=== PATIENT | female | born 1965 | race American Indian/Alaskan Native ===

== ENCOUNTER 2017-02-07 04:17 | Emergency (ER) | payer OTHER ==
[2017-02-07 04:26] VITALS: TEMP 98.8
--- NOTE | 2017-02-07 04:33 | ED PDOC ---
Arrival/HPI - General Chief Complaint: Abdominal Pain Time Seen by Provider: 02/07/17 04:28 Historian: Patient - History of Present Illness Narrative History of Present Illness (Text): 02/07/17 04:32 Adriane Harrell is a 51 year old female, whose past medical history includes hypertension, who presents to the emergency department complaining of right sided abdominal pain tonight. Patient reports associated constipation and notes she has taken laxatives with no relief. Patient denies any history of fever, chills, abdominal pain, nausea, vomiting, diarrhea, urinary symptoms, back pain, headache, or any other complaints. Symptom Onset: Gradual Symptom Course: Unchanged Activities at Onset: Rest, Light Context: Home Past Medical History - Provider Review Nursing Documentation Reviewed: Yes - Cardiac Hx Hypertension: Yes - Psychiatric Hx Substance Use: No Family/Social History - Physician Review Nursing Documentation Reviewed: Yes Family/Social History: No Known Family HX Smoking Status: no Hx Alcohol Use: No Hx Substance Use: No Allergies/Home Meds Allergies/Adverse Reactions: Allergies No Known Allergies Allergy (Verified 02/07/17 04:26) Home Medications: Home Meds Medication Instructions Recorded Confirmed Unobtainable 02/07/17 02/07/17 Review of Systems - Physician Review All systems were reviewed & negative as marked: Yes - Review of Systems Constitutional: Normal. absent: Fevers Eyes: Normal ENT: Normal Respiratory: Normal. absent: SOB, Cough Cardiovascular: Normal. absent: Chest Pain Gastrointestinal: Abdominal Pain, Constipation. absent: Diarrhea, Nausea, Vomiting Genitourinary Female: Normal. absent: Dysuria, Frequency, Hematuria, Urine Output Changes Musculoskeletal: Normal. absent: Back Pain, Neck Pain Skin: Normal Neurological: Normal. absent: Headache, Dizziness Endocrine: Normal Hemo/Lymphatic: Normal Psychiatric: Normal Physical Exam Vital Signs Reviewed: Yes Vital Signs Temp Pulse Resp BP Pulse Ox 02/07/17 06:22 76 16 140/85 100 02/07/17 04:19 98.8 F 78 18 136/78 99 Temperature: Afebrile Blood Pressure: Normal Pulse: Regular Respiratory Rate: Normal Appearance: Positive for: Well-Appearing, Non-Toxic, Comfortable Pain Distress: None Mental Status: Positive for: Alert and Oriented X 3 - Systems Exam Head: Present: Atraumatic, Normocephalic Pupils: Present: PERRL Extroacular Muscles: Present: EOMI Conjunctiva: Present: Normal Mouth: Present: Moist Mucous Membranes Neck: Present: Normal Range of Motion Respiratory/Chest: Present: Clear to Auscultation, Good Air Exchange. No: Respiratory Distress, Accessory Muscle Use Cardiovascular: Present: Regular Rate and Rhythm, Normal S1, S2. No: Murmurs Abdomen: Present: Tenderness (right mid/lower abdomen), Normal Bowel Sounds. No : Distention, Peritoneal Signs, Rebound, Guarding, Hernias Back: Present: Normal Inspection Upper Extremity: Present: Normal Inspection. No: Cyanosis, Edema Lower Extremity: Present: Normal Inspection. No: Edema Neurological: Present: GCS=15, CN II-XII Intact, Speech Normal Skin: Present: Warm, Dry, Normal Color. No: Rashes Psychiatric: Present: Alert, Oriented x 3, Normal Insight, Normal Concentration Medical Decision Making ED Course and Treatment: 02/07/17 04:33 Impression: 51 year old female complaining of right-sided abdominal pain and constipation. Plan: -- CT Abdomen and Pelvis with IV contrast -- Labs, lipase -- Urinalysis -- IV fluids -- Reassess and disposition Progress Notes: - Lab Interpretations Lab Results: 02/07/17 05:30 Lab Results 02/07/17 05:50: Urine Color Yellow, Urine Appearance Clear, Urine pH 6.0, Ur Specific [place] 1.020, Urine Protein Trace H, Urine Glucose (UA) Negative, Urine Ketones Negative, Urine Blood Negative, Urine Nitrate Negative, Urine Bilirubin Negative, Urine Urobilinogen 0.2, Ur Leukocyte Esterase Negative, Urine RBC 0 - 2, Urine WBC 0 - 2, Ur Epithelial Cells 0 - 2, Urine HCG, Qual Negative 02/07/17 05:30: WBC 5.4, RBC 4.23, Hgb 13.5, Hct 39.5, MCV 93.4, MCH 31.9, MCHC 34.2, RDW 13.3, Plt Count 197, MPV 9.0 I have reviewed the lab results: Yes - RAD Interpretation Radiology Orders: 02/07/17 04:37 ABD & PELVIS IV CONTRAST ONLY [CT] Stat - Medication Orders Current Medication Orders: Discontinued Medications Sodium Chloride (Sodium Chloride 0.9%) 1,000 mls @ 999 mls/hr IV .Q1H1M STA Stop: 02/07/17 05:37 Last Admin: 02/07/17 06:00 Dose: 999 mls/hr - Transfer of Care Patient signed out to Dr:: Lexa Pending Radiology Studies:: CT Abd/pelvis/reassess/final disposition - Scribe Statement The provider has reviewed the documentation as recorded by the Abelardoiblino Najera Provider Attestation: All medical record entries made by the Scribe were at my direction and personally dictated by me. I have reviewed the chart and agree that the record accurately reflects my personal performance of the history, physical exam, medical decision making, and the department course for this patient. I have also personally directed, reviewed, and agree with the discharge instructions and disposition. Disposition/Present on Arrival - Present on Arrival Any Indicators Present on Arrival: No History of DVT/PE: No History of Uncontrolled Diabetes: No Urinary Catheter: No History of Decub. Ulcer: No History Surgical Site Infection Following: None - Disposition Have Diagnosis and Disposition been Completed?: No Diagnosis: Abdominal pain Disposition Time: 07:00 Patient Problems: Current Active Problems Problem Status Onset Abdominal pain Acute Condition: STABLE
[2017-02-07] MEDS ORDERED: Sodium Chloride 0.9% 1,000 ML IV STA (04:37)
[2017-02-07 05:42] LABS: HEMATOCRIT 39.5 % (36.0-48.0); MEAN CELL VOLUME 93.4 fL (80.0-105.0); MEAN CORPUSCULAR HEMOGLOBIN 31.9 pg (25.0-35.0); MEAN CORPUSCULAR HGB CONC 34.2 g/dl (31.0-37.0); RED CELL DISTRIBUTION WIDTH 13.3 % (11.5-14.5); WHITE BLOOD COUNT 5.4 10^3/ul (4.5-11.0)
[2017-02-07 06:05] LABS: URINE BILIRUBIN NEGATIVE (NEGATIVE); URINE BLOOD NEGATIVE (NEGATIVE); URINE GLUCOSE (UA) NEGATIVE (NEGATIVE); URINE KETONE NEGATIVE (NEGATIVE); URINE LEUKOCYTE ESTERASE NEGATIVE Leu/uL (NEGATIVE); URINE PROTEIN TRACE mg/dL (<30 mg/dL); URINE UROBILINOGEN 0.2 E.U./dL (<1 E.U./dL)
[2017-02-07 06:20] LABS: URINE APPEARANCE CLEAR (CLEAR); URINE COLOR YELLOW (YELLOW)
[2017-02-07 06:30] LABS: URINE EPITHELIAL CELLS 0 - 2 /hpf (0-5); URINE RBC 0 - 2 /hpf (0-2); URINE WBC 0 - 2 /hpf (0-6)
[2017-02-07 07:04] LABS: ALB/GLOB RATIO 1.5 (1.1-1.8); ALKALINE PHOSPHATASE 63 U/L (38-133); ALT/SGPT 48 U/L (7-56); AST/SGOT 35 U/L (15-39); BILIRUBIN,TOTAL 0.5 mg/dL (0.2-1.3); BLOOD UREA NITROGEN 21 mg/dL (7-21); CALCIUM 8.9 mg/dL (8.4-10.5); CARBON DIOXIDE 24 mmol/L (21-33); CHLORIDE 103 mmol/L (95-110); GFR AFRICAN-AMERICAN > 60; GLUCOSE,RANDOM 93 mg/dL (70-110); LIPASE 86 U/L (23-300); POTASSIUM 3.1 mmol/L (3.6-5.0); SODIUM 139 mmol/L (132-148); TOTAL PROTEIN 7.4 g/dL (5.8-8.3)
[2017-02-07] MEDS ORDERED: Potassium Chloride 20 mEq ER Tab PO STA (07:12)
[2017-02-07] MEDS ORDERED: Iohexol 350 MG/100 ML VIAL ONE (07:14)
--- NOTE | 2017-02-07 07:28 | ED PDOC ---
Physical Exam Vital Signs Reviewed: Yes Vital Signs Temp Pulse Resp BP Pulse Ox 02/07/17 09:54 87 18 145/90 100 02/07/17 08:00 80 17 130/76 99 02/07/17 06:22 76 16 140/85 100 02/07/17 04:19 98.8 F 78 18 136/78 99 Temperature: Afebrile Blood Pressure: Normal Pulse: Regular Respiratory Rate: Normal Appearance: Positive for: Well-Appearing, Non-Toxic, Comfortable Pain Distress: None Mental Status: Positive for: Alert and Oriented X 3 Medical Decision Making ED Course and Treatment: 02/07/17 07:00 Case signed out to me from overnight by Dr. Kellogg, pending Abdomen/Pelvis CT, reevaluation and final disposition. The patient is a 51 year old female who came into the emergency department earlier this morning complaining of right sided abdominal pain associated with constipation. On reevaluation, the patient is awaiting CT patiently. 02/07/17 07:12 Patient lab work reveal a potassium level of 3.1. K-Dur ordered. 02/07/17 08:35 On reevaluation, the patient states she has some pain and is still constipated. Will give Toradol and Magnesium Citrate. 02/07/17 09:47 Abdomen/Pelvis CT: Creator : Clarence Gandara MD COMPARISON: None. FINDINGS: LOWER THORAX: Unremarkable. LIVER: Unremarkable. No gross lesion or ductal dilatation. GALLBLADDER AND BILE DUCTS: Unremarkable. PANCREAS: Unremarkable. No gross lesion or ductal dilatation. SPLEEN: Unremarkable. ADRENALS: Unremarkable. No mass. KIDNEYS AND URETERS: There is a 5 x 8 cm cyst in the left kidney upper pole. The kidneys are otherwise unremarkable VASCULATURE: Unremarkable. No aortic aneurysm. BOWEL: Unremarkable. No obstruction. No gross mural thickening. APPENDIX: Normal appendix. PERITONEUM: Unremarkable. No free fluid. No free air. LYMPH NODES: Unremarkable. No enlarged lymph nodes. BLADDER: Unremarkable. REPRODUCTIVE: There is a 3 cm fibroid on the right side of the uterine fundus BONES: No acute fracture. OTHER FINDINGS: None. IMPRESSION: No acute findings 02/07/17 10:03 On re-evaluation, the patient feels better and is in no acute distress. I have discussed the results and plan with the patient, who expresses understanding. Patient in agreement with plan to discharged home. Patient is stable for discharge. Patient was instructed to follow up with physician/clinic in 1-2 days or return if symptoms worsen or new concerning symptoms arise. - Lab Interpretations Lab Results: 02/07/17 05:30 02/07/17 06:33 Lab Results 02/07/17 06:33: Sodium 139, Potassium 3.1 L, Chloride 103, Carbon Dioxide 24, Anion Gap 15, BUN 21, Creatinine 0.9, Est GFR ( Amer) > 60, Est GFR (Non- Af Amer) > 60, Random Glucose 93, Calcium 8.9, Total Bilirubin 0.5, AST 35, ALT 48, Alkaline Phosphatase 63, Total Protein 7.4, Albumin 4.4, Globulin 2.9, Albumin/Globulin Ratio 1.5, Lipase 86 02/07/17 05:50: Urine Color Yellow, Urine Appearance Clear, Urine pH 6.0, Ur Specific [place] 1.020, Urine Protein Trace H, Urine Glucose (UA) Negative, Urine Ketones Negative, Urine Blood Negative, Urine Nitrate Negative, Urine Bilirubin Negative, Urine Urobilinogen 0.2, Ur Leukocyte Esterase Negative, Urine RBC 0 - 2, Urine WBC 0 - 2, Ur Epithelial Cells 0 - 2, Urine HCG, Qual Negative 02/07/17 05:30: WBC 5.4, RBC 4.23, Hgb 13.5, Hct 39.5, MCV 93.4, MCH 31.9, MCHC 34.2, RDW 13.3, Plt Count 197, MPV 9.0 I have reviewed the lab results: Yes - RAD Interpretation Radiology Orders: 02/07/17 04:37 ABD & PELVIS IV CONTRAST ONLY [CT] Stat - Medication Orders Current Medication Orders: Discontinued Medications Sodium Chloride (Sodium Chloride 0.9%) 1,000 mls @ 999 mls/hr IV .Q1H1M STA Stop: 02/07/17 05:37 Last Admin: 02/07/17 06:00 Dose: 999 mls/hr Iohexol (Omnipaque 350 100 Ml) Confirm Administered Dose 350 mg .ROUTE .STK-MED ONE Stop: 02/07/17 07:15 Ketorolac Tromethamine (Toradol) 30 mg IVP STAT STA Stop: 02/07/17 08:39 Last Admin: 02/07/17 08:46 Dose: 30 mg Magnesium Citrate (Citrate Of Mag) 300 ml PO ONCE ONE Stop: 02/07/17 08:39 Last Admin: 02/07/17 08:47 Dose: 300 ml Potassium Chloride (K-Dur 20 Meq Er Tab) 40 meq PO STAT STA Stop: 02/07/17 07:13 Last Admin: 02/07/17 07:27 Dose: 40 meq - Scribe Statement The provider has reviewed the documentation as recorded by the Abelardoiblino Suresh Provider Scribe Attestation: All medical record entries made by the Abelardoiblino were at my direction and personally dictated by me. I have reviewed the chart and agree that the record accurately reflects my personal performance of the history, physical exam, medical decision making, and the department course for this patient. I have also personally directed, reviewed, and agree with the discharge instructions and disposition. Disposition/Present on Arrival - Present on Arrival Any Indicators Present on Arrival: No History of DVT/PE: No History of Uncontrolled Diabetes: No Urinary Catheter: No History of Decub. Ulcer: No History Surgical Site Infection Following: None - Disposition Have Diagnosis and Disposition been Completed?: Yes Diagnosis: Abdominal pain Disposition: HOME/ ROUTINE Disposition Time: 10:03 Patient Plan: Discharge Condition: IMPROVED Discharge Instructions (ExitCare): Constipation (ED), Acute Abdominal Pain (ED) Additional Instructions: Ms Fisher, thank you for letting us take care of you today. Your provider was Dr. Lindquist. You were treated for Abdominal Pain. The emergency medical care you received today was directed at your acute symptoms. If you were prescribed any medication, please fill it and take as directed. It may take several days for your symptoms to resolve. Return to the Emergency Department if your symptoms worsen, do not improve, or if you have any other problems. Please contact your doctor or call one of the physicians/clinics you have been referred to that are listed on the Patient Visit Information form that is included in your discharge packet. Bring any paperwork you were given at discharge with you along with any medications you are taking to your follow up visit. Our treatment cannot replace ongoing medical care by a primary care provider (PCP) outside of the emergency department. Thank you for allowing the [facility] team to be part of your care today. If you had an X-Ray or CT scan: A Radiologist will review the ED reading if any change in treatment is needed we will contact you. If you had a blood, urine, or wound culture: It will take several days for the results, if any change in treatment is needed we will contact you. If you had an STI test: It will take 48 hours for the results. Please call after 1 week if you have not heard back. Prescriptions: Polyethylene Glycol 3350 [Miralax] 17 gm PO DAILY #1 Ranitidine HCl [Zantac] 150 mg PO BID PRN #30 tablet PRN Reason: Pain, Mild (1-3) Referrals: [facility] Saleem Rejocelin, [Family Provider] - Follow up with primary Chao Betts MD [Staff Provider] - Follow up with primary Forms: [employer] (Georgian)
[2017-02-07] MEDS ORDERED: Magnesium Citrate Oral SOL (300 ml) PO ONE (08:38)
--- NOTE | 2017-02-07 09:45 | CT ---
PROCEDURE: CT Abdomen and Pelvis with contrast HISTORY: abdominal pain COMPARISON: None. TECHNIQUE: Contrast dose: 100 cc of Omni 350 Radiation dose: Total exam DLP = 805 mGy-cm. This CT exam was performed using one or more of the following dose reduction techniques: Automated exposure control, adjustment of the mA and/or kV according to patient size, and/or use of iterative reconstruction technique. FINDINGS: LOWER THORAX: Unremarkable. LIVER: Unremarkable. No gross lesion or ductal dilatation. GALLBLADDER AND BILE DUCTS: Unremarkable. PANCREAS: Unremarkable. No gross lesion or ductal dilatation. SPLEEN: Unremarkable. ADRENALS: Unremarkable. No mass. KIDNEYS AND URETERS: There is a 5 x 8 cm cyst in the left kidney upper pole. The kidneys are otherwise unremarkable VASCULATURE: Unremarkable. No aortic aneurysm. BOWEL: Unremarkable. No obstruction. No gross mural thickening. APPENDIX: Normal appendix. PERITONEUM: Unremarkable. No free fluid. No free air. LYMPH NODES: Unremarkable. No enlarged lymph nodes. BLADDER: Unremarkable. REPRODUCTIVE: There is a 3 cm fibroid on the right side of the uterine fundus BONES: No acute fracture. OTHER FINDINGS: None. IMPRESSION: No acute findings
[2017-02-07 09:55] VITALS: BP 145/90; PULSE 87; RESP 18; O2SAT 100
== END 2017-02-07 10:15 | disposition home or self-care (01) ==
LOC: ED 04:17
DX: R10.9 Unspecified abdominal pain (principal)
CPT/HCPCS: 74177; 80053; 81001; 83690; 84703; 85027; 96374; 99284; J1885; J7040; Q9967

== ENCOUNTER 2017-06-02 14:22 | Emergency (ER) | payer OTHER ==
[2017-06-02 14:42] VITALS: BP 138/90; TEMP 99
[2017-06-02] MEDS ORDERED: Amoxicillin-Clav 875-125 mg Tab PO STA (15:27)
[2017-06-02] MEDS ORDERED: Neomycin/Polymyxin/Hydrocort Otic Susp (10 ml) AD STA (15:28)
--- NOTE | 2017-06-02 16:22 | ED PDOC ---
Arrival/HPI - General Chief Complaint: ENT Problem Time Seen by Provider: 06/02/17 15:14 Historian: Patient - History of Present Illness Narrative History of Present Illness (Text): 06/02/17 15:39 this 51-year-old female with past medical history of hypertension , presents complaining of right ear pain 10 days. Patient stated she was seen at [facility] days. Patient has been taking amoxicillin without significant relief of symptoms. Patient denies sore throat, headaches, dizziness, shortness of breath, chest pain, abdominal pain, or abnormal gait Time/Duration: Other (See HPI) Context: Home Past Medical History - Provider Review Nursing Documentation Reviewed: Yes - Reproductive Menopause: Yes - Cardiac Hx Hypertension: Yes - Psychiatric Hx Substance Use: No - Anesthesia Hx Anesthesia Reactions: No Family/Social History - Physician Review Nursing Documentation Reviewed: Yes Family/Social History: Other (Noncontributory) Smoking Status: Current Some Days Smoker Hx Alcohol Use: No Hx Substance Use: No Allergies/Home Meds Allergies/Adverse Reactions: Allergies No Known Allergies Allergy (Verified 06/02/17 14:42) Home Medications: Home Meds Medication Instructions Recorded Confirmed Amlodipine Besylate [Amlodipine 10 mg PO DAILY 06/02/17 06/02/17 Besilate] Amoxicillin [Amoxil 500 mg Cap] 500 mg PO TID 06/02/17 06/02/17 Triamterene/Hydrochlorothiazid 1 cap PO DAILY 06/02/17 06/02/17 [Triamterene-Hydrochlorothiazide 25 mg-37.5 mg] oxyCODONE [oxyCODONE Immediate 5 mg PO PRN PRN 06/02/17 06/02/17 Release Tab] Review of Systems - Review of Systems Constitutional: Normal. absent: Fatigue, Weight Change, Fevers, Night Sweats Eyes: Normal ENT: Other (Right ear pain). absent: Sore Throat, Rhinorrhea, Epistaxis Respiratory: Normal Cardiovascular: Normal Gastrointestinal: Normal Genitourinary Female: Normal Musculoskeletal: Normal Skin: Normal Neurological: Normal Endocrine: Normal Hemo/Lymphatic: Normal Psychiatric: Normal Physical Exam Vital Signs Temp Pulse Resp BP Pulse Ox 06/02/17 14:39 99 F 84 16 138/90 98 Temperature: Afebrile Blood Pressure: Normal Pulse: Regular Respiratory Rate: Normal Appearance: Positive for: Well-Appearing, Non-Toxic, Comfortable Pain Distress: None Mental Status: Positive for: Alert and Oriented X 3 - Systems Exam Head: Present: Atraumatic, Normocephalic Pupils: Present: PERRL Extroacular Muscles: Present: EOMI Conjunctiva: Present: Normal Ears: Present: TM Bulging, Fluid, Other (Left ear is normal). No: TM Perf Mouth: Present: Moist Mucous Membranes Neck: Present: Normal Range of Motion Respiratory/Chest: Present: Clear to Auscultation, Good Air Exchange. No: Respiratory Distress, Accessory Muscle Use Cardiovascular: Present: Regular Rate and Rhythm, Normal S1, S2. No: Murmurs Abdomen: Present: Normal Bowel Sounds. No: Tenderness, Distention, Peritoneal Signs Back: Present: Normal Inspection Upper Extremity: Present: Normal Inspection. No: Cyanosis, Edema Lower Extremity: Present: Normal Inspection. No: Edema Neurological: Present: GCS=15, CN II-XII Intact, Speech Normal Skin: Present: Warm, Dry, Normal Color. No: Rashes Psychiatric: Present: Alert, Oriented x 3, Normal Insight, Normal Concentration Medical Decision Making ED Course and Treatment: 06/02/17 16:21 Re-evaluation. Patient feels better. Discussed results and plan with patient who expresses understanding. All questions answered and there is agreement with the plan to discharge home with instructions. Patient stable for discharge. Return if symptoms persist or worsen. Re-evaluation Time: 16:21 Reassessment Condition: Re-examined, Improved - Medication Orders Current Medication Orders: Ibuprofen (Motrin Tab) 600 mg PO STAT STA Stop: 06/02/17 16:19 Discontinued Medications Amoxicillin/Clavulanate Potassium (Augmentin 875 Mg-125 Mg Tab) 1 tab PO STAT STA PRN Reason: Protocol Stop: 06/02/17 15:28 Last Admin: 06/02/17 15:41 Dose: 1 tab Meclizine HCl (Antivert) 50 mg PO STAT STA Stop: 06/02/17 15:31 Last Admin: 06/02/17 15:41 Dose: 50 mg Neomycin/Polymyxin/Hydrocortisone (Cortisporin Otic Susp) 1 ml AD STAT STA Stop: 06/02/17 15:29 Last Admin: 06/02/17 15:41 Dose: 1 ml Disposition/Present on Arrival - Present on Arrival Any Indicators Present on Arrival: No History of DVT/PE: No History of Uncontrolled Diabetes: No Urinary Catheter: No History of Decub. Ulcer: No History Surgical Site Infection Following: None - Disposition Have Diagnosis and Disposition been Completed?: Yes Diagnosis: Right otitis media Disposition: HOME/ ROUTINE Disposition Time: 16:21 Patient Plan: Discharge Patient Problems: Current Active Problems Problem Status Onset Right otitis media Acute Condition: GOOD Discharge Instructions (ExitCare): Otitis Media (ED) Additional Instructions: Call Dr. Salas ENT office for follow-up visit in 1-2 days. Take medications as instructed with food. Return to emergency if his symptoms worsen or do not drive or operate machinery as if you take a meclizine Prescriptions: Amoxicillin/Clavulanate [Augmentin 875 MG-125 MG] 1 tab PO BID #20 tab Ibuprofen [Motrin] 600 mg PO Q8 PRN #20 tab PRN Reason: Pain, Severe (8-10) Meclizine [Antivert] 25 mg PO Q6 #30 tab Referrals: Angel Salas, [Doctor Osteopathy] - Follow up with primary Forms: [employer] (Azeri), WORK NOTE
[2017-06-02 16:47] VITALS: PULSE 91; RESP 18; O2SAT 100
== END 2017-06-02 16:47 | disposition home or self-care (01) ==
LOC: ED 14:22
DX: H66.91 Otitis media, unspecified, right ear (principal); F17.210 Nicotine dependence, cigarettes, uncomplicated